=== PATIENT | male | born 1990 | race African-American/Black ===

== ENCOUNTER 2023-06-05 14:37 | Emergency (ER) | payer OTHER, SELFPAY ==
--- NOTE | ~2023-06-05 | CT_ITS ---
EXAMINATION: CT ABDOMEN AND PELVIS WITH CONTRAST CLINICAL INFORMATION: Right lower quadrant pain, question appendicitis COMPARISON: None available. TECHNIQUE: Multidetector volumetric images were obtained from the superior aspect of the liver through the pubic symphysis following administration 85 mL of Omnipaque 350 intravenous contrast. Sagittal and coronal reformatted images were obtained on the technologist's workstation. Oral contrast: No This CT examination was performed using dose optimization techniques as appropriate, variously including the following: *Automated exposure control *Adjustment of mA and/or kV according to patient size (this includes techniques or standardized protocols for targeted exams where dose is matched to indication/reason for exam; i.e. extremities or head) *Use of iterative reconstruction technique DLP: 868 mGy-cm FINDINGS: LUNG BASES: The visualized lung bases are unremarkable. LIVER, GALLBLADDER, AND BILIARY TREE: The liver is normal in size, shape, and attenuation. No suspicious focal hepatic lesion or biliary ductal dilatation is present. The gallbladder is unremarkable with no evidence of radiopaque gallstones, gallbladder wall thickening, or obvious pericholecystic inflammatory changes. PANCREAS: Unremarkable. SPLEEN: Unremarkable. ADRENAL GLANDS: Unremarkable. KIDNEYS AND URETERS: The kidneys are normal in size, shape, and attenuation. No hydronephrosis, hydroureter, or calculi seen. No perinephric stranding. BLADDER: Unremarkable. GASTROINTESTINAL TRACT: No evidence of bowel obstruction or significant wall thickening. The appendix is unremarkable. No free fluid or free air is seen. ABDOMINAL WALL: No significant hernia is appreciated. LYMPH NODES: Normal. VASCULAR: Unremarkable. PELVIC VISCERA: Unremarkable. OSSEOUS STRUCTURES: Unremarkable. CT/CT abdomen pelvis w IV con IMPRESSION: No acute findings identified in the abdomen/pelvis. Normal appendix.
[2023-06-05 15:18] VITALS: BP 137/71; PULSE 83; RESP 20; TEMP 37.2; O2SAT 99; BMI 35.2
[2023-06-05 15:35] LABS: MANUAL DIFF FLAG NO
[2023-06-05 15:37] LABS: Basophils Absolute Auto 0.1 X10*3/uL (0.0-0.2); Basophils Percent Auto 0.5 % (0-2); Eosinophils Absolute Auto 0.4 X10*3/uL (0.0-0.4); Eosinophils Percent Auto 3.8 % (0-4); Hematocrit 45.8 % (42.0-52.0); Hemoglobin 15.4 g/dl (14.0-18.0); Imm Gran Abs Auto 0.02 X10*3/uL (0.00-0.03); Imm Gran Pct Auto 0.2 % (0.0-0.4); Lymphocytes Absolute Auto 4.4 X10*3/uL (1.2-4.9); Lymphocytes Percent Auto 39.8 % (20-40); Mean Corpuscular HGB Conc 33.6 g/dl (31.0-36.0); Mean Corpuscular Hemoglobin 28.6 pg (27.0-33.0); Mean Corpuscular Volume 85.1 fL (80.0-98.0); Mean Platelet Volume 8.9 fL (9.4-12.4); Monocytes Absolute Auto 1.1 X10*3/uL (0.1-1.2); Monocytes Percent Auto 10.2 % (2-11); Neutrophils Percent Auto 45.5 % (45-73); Platelet Count 289 X10*3/uL (160-400); Red Blood Count 5.38 X10*6/uL (4.60-5.80); Red Cell Distribution Width 12.9 % (11.0-16.0)
[2023-06-05 15:38] LABS: Appearance Urine Clear; Color Urine Yellow; Glucose Urine UA Negative (Negative); Leukocyte Esterase Urine Negative (Negative); Nitrite Urine Negative (Negative); PH 5.5 (5.0-9.0); Specific Gravity - Urine >= 1.030 (1.005-1.025); Urine Blood Negative (Negative); Urine Ketones Trace mg/dL (Negative); Urine Protein Negative (Neg-Trace)
[2023-06-05 16:04] LABS: Alanine Aminotransferase 24 U/L (0-40); Albumin Level 4.3 g/dL (3.5-5.0); Alkaline Phosphatase 99 U/L (39-117); Anion Gap 11 (12-20); Aspartate Amino Transferase 19 U/L (5-37); Bilirubin Direct 0.2 mg/dL (0.0-0.5); Bilirubin Total 0.5 mg/dL (0.0-1.0); Blood Urea Nitrogen 13 mg/dL (9-16); Carbon Dioxide 25 mmol/L (22-29); Chloride 109 mmol/L (96-108); Creatinine Clr Calc Pharmacy 139.3; Estimated Glomerular Filt Rate > 60; Glucose Random 98 mg/dL (60-115); Potassium 3.9 mmol/L (3.3-5.1); Sodium 141 mmol/L (135-145); Total Protein 7.9 g/dL (6.5-8.0)
[2023-06-05 18:00] VITALS: BP 134/77; PULSE 88; RESP 16; TEMP 37.1; O2SAT 99
--- NOTE | 2023-06-05 18:06 | PC.NURSE ---
alert and oriented, respirations even and unlabored. pt reports abd pain worse with movement, no associated nausea or vomiting. denies any abdominal surgeries. states pain is 3/10 at the moment. lab work obtained in triage, awaiting provider. call chaparro within reach.
--- NOTE | 2023-06-05 18:57 | ED_ITS ---
HPI - Abdominal Pain General Chief Complaint: Abdominal Pain Stated Complaint: sharp pain in appendicitis Time Seen by Provider: 06/05/23 18:22 Source: patient Mode of arrival: ambulatory Limitations: no limitations History of Present Illness HPI narrative: Patient otherwise healthy complaining of pain in right lower abdomen for last 2 days increase in ambulation no nausea no vomiting no fever no chills no urinary complaints no history of kidney stone feels hungry Related Data Previous Rx's Medication Instructions Recorded ibuprofen 600 mg tablet 600 mg PO Q6H PRN fever or pain 06/05/23 #30 tabs Allergies Allergy/AdvReac Type Severity Reaction Status Date / Time No Known Allergies Allergy Unverified 07/03/20 18:46 Review of Systems Review of Systems Yes all other systems are reviewed and are negative [facility] Social History Social History Advance Directives: No Advance Directives Information Provided: No Physical Exam ED Vital Signs: Vital Signs - 24 hr 06/05/23 15:18 06/05/23 18:00 06/05/23 20:09 Temperature 98.9 F 98.7 F 98.4 F Pulse Rate 83 88 60 Respiratory Rate 20 16 18 Blood Pressure 137/71 134/77 118/72 Pulse Oximetry 99 99 100 Oxygen Delivery Method Room Air Room Air Room Air BMI result Body Mass Index 35.2 Appearance: Alert. Oriented X3. No acute distress. Eyes: PERRLA, No Nystagmus ENT: Pharynx normal. Oral Mucosa moist Neck: Normal inspection. Neck supple. CVS: Normal heart rate and rhythm. Pulses normal. Respiratory: No respiratory distress. Equal air entry bilateral, no wheezing/rales/rhonchi Abdomen: Soft, deep tenderness right lower abdomen with guarding no rebound tenderness Bowel sounds are present, no mass palpable, no CVA tenderness Skin: Skin warm and dry. Normal skin color. Normal skin turgor. Extremities: No lower extremity edema. No calf tenderness Neuro: Oriented X 3. No motor deficit. No sensory deficit.No cerebellar signs , cranial nerves II-XII intact Medical Decision Making Differential Diagnosis Differential Diagnoses: The differential diagnosis associated with the presentation includes Appendicitis/diverticulitis/constipation/kidney stone Lab Data 06/05/23 15:27 06/05/23 15:27 Labs: Lab Results 06/05/23 06/05/2323 Range/Units 15:27 15:27 15:29 WBC 11.0 H (4.8-10.8) X10*3/uL RBC 5.38 (4.60-5.80) X10*6/uL Hgb 15.4 (14.0-18.0) g/dl Hct 45.8 (42.0-52.0) % MCV 85.1 (80.0-98.0) fL MCH 28.6 (27.0-33.0) pg MCHC 33.6 (31.0-36.0) g/dl RDW 12.9 (11.0-16.0) % Plt Count 289 (160-400) X10*3/uL MPV 8.9 L (9.4-12.4) fL Immature Gran % (Auto) 0.2 (0.0-0.4) % Neut % (Auto) 45.5 (45-73) % Lymph % (Auto) 39.8 (20-40) % Bradley % (Auto) 10.2 (2-11) % Eos % (Auto) 3.8 (0-4) % Baso % (Auto) 0.5 (0-2) % Lymph # (Auto) 4.4 (1.2-4.9) X10*3/uL Bradley # (Auto) 1.1 (0.1-1.2) X10*3/uL Eos # (Auto) 0.4 (0.0-0.4) X10*3/uL Baso # (Auto) 0.1 (0.0-0.2) X10*3/uL Abs Immat Gran (auto) 0.02 (0.00-0.03) X10*3/uL Absolute Neuts (auto) 5.0 (2.0-8.3) x10*3/uL Absolute Nucleated RBC 0.000 (0.0-0.012) X10*3/uL Nucleated RBC % (auto) 0.0 (0.0-0.2) /100WBC Sodium 141 (135-145) mmol/L Potassium 3.9 (3.3-5.1) mmol/L Chloride 109 H (96-108) mmol/L Carbon Dioxide 25 (22-29) mmol/L Anion Gap 11 L (12-20) BUN 13 (9-16) mg/dL Creatinine 0.95 (0.5-1.4) mg/dL Estim Creat Clear Calc 139.3 Estimated GFR > 60 Random Glucose 98 (60-115) mg/dL Calcium 10.0 (8.4-10.2) mg/dL Total Bilirubin 0.5 (0.0-1.0) mg/dL Direct Bilirubin 0.2 (0.0-0.5) mg/dL AST 19 (5-37) U/L ALT 24 (0-40) U/L Alkaline Phosphatase 99 (39-117) U/L Total Protein 7.9 (6.5-8.0) g/dL Albumin 4.3 (3.5-5.0) g/dL Urine Color Yellow Urine Appearance Clear Urine pH 5.5 (5.0-9.0) Ur Specific [place] >= 1.030 H (1.005-1.025) Urine Protein Negative (Neg-Trace) mg/dL Urine Glucose (UA) Negative (Negative) mg/dL Urine Ketones Trace (Negative) mg/dL Urine Blood Negative (Negative) Urine Nitrite Negative (Negative) Ur Leukocyte Esterase Negative (Negative) Medications Administered Discontinued Medications Generic Name Dose Route Start Last Admin Trade Name Freq PRN Reason Stop Dose Admin Sodium Chloride 1,000 mls @ 999 mls/hr 06/05/23 19:00 06/05/23 20:18 Ns IV 06/05/23 20:00 Infused .Q1H1M ONE Infusion Iohexol 100 ml 06/05/23 19:40 06/05/23 19:41 Iohexol 350 Mg/Ml 100 Ml Infus..Btl IV 06/05/23 19:41 85 ml ONCE ONE Administration Ketorolac Tromethamine 30 mg 06/05/23 19:00 06/05/23 19:14 Ketorolac Tromethamine 30 Mg/Ml Vial IVPUSH 06/05/23 19:01 30 mg ONCE ONE Administration Discharge Plan Discharge Clinical Impression: Abdominal pain Patient Disposition: Home, Self-Care Instructions: Abdominal Pain (ED) Additional Instructions: Cause of abdominal pain is not very clear the CT scan is negative for appendicitis Take ibuprofen for pain Follow with PCP if not better Prescriptions: New ibuprofen 600 mg tablet 600 mg PO Q6H PRN (Reason: fever or pain) Qty: 30 0RF Interventions: ED Discharge Assessment Last Done: 06/05/23 21:48 Discharge Date/Time: 06/05/23 21:49
[2023-06-05] MEDS: 0.9 % Sodium Chloride 1,000 ML 999 ML IV (19:14)
[2023-06-05] MEDS: Ketorolac Tromethamine 30 MG/ML VIAL IVPUSH (19:14)
[2023-06-05] MEDS: iohexoL 350 MG/ML 100 ML INFUS..BTL IV (19:41)
[2023-06-05 20:09] VITALS: BP 118/72; PULSE 60; RESP 18; TEMP 36.9; O2SAT 100
--- NOTE | 2023-06-05 21:44 | PC.NURSE ---
pt reported he had a bowel movement while in the ed
== END 2023-06-05 21:49 | disposition home or self-care (01) ==
PROVIDERS: Emergency Provider Internal Medicine
DX: R10.31 Right lower quadrant pain (principal); R10.2 Pelvic and perineal pain; Z79.899 Other long term (current) drug therapy
CPT/HCPCS: 36415; 74177; 80053; 81003; 82248; 85025; 96361; 96374; 99284; 99285; J1885; Q9967